=== PATIENT | male | born 1945 | race Caucasian/White ===

== ENCOUNTER → 2023-11-23 15:43 | Outpatient (REF) | payer OTHER, SELFPAY | LOC: DHCBS HW 15:43 | PROVIDERS: ATTENDING PHYSICIAN Nuclear Medicine Nuclear Cardiology; FAMILY PHYSICIAN Physician Assistant | DX: I42.9 Cardiomyopathy, unspecified (principal); I25.10 Atherosclerotic heart disease of native coronary artery without angina pectoris; I35.1 Nonrheumatic aortic (valve) insufficiency; Z95.1 Presence of aortocoronary bypass graft | CPT/HCPCS: 93306 ==

== ENCOUNTER 2024-03-30 09:49 | Emergency (ER) | payer OTHER, SELFPAY ==
[2024-03-30 09:51] VITALS: BP 154/88
[2024-03-30 11:28] VITALS: BMI 29.5
[2024-03-30] MEDS: TYLENOL 650 MG PO (11:29)
[2024-03-30] MEDS: NSS 500 IV (11:30)
--- NOTE | 2024-03-30 11:32 | ED.GENMED ---
History of Present Illness
General
Chief Complaint: Headache
Source: patient
Exam Limitations: none
Time Seen by Provider: 03/30/24 10:29
Nursing documentation reviewed up to this point in time: agreed with
History of Present Illness
History of Present Illness:
Patient presents to ED secondary to persistent 'annoying discomfort' on top of his head, radiating down to his left cheek since early this morning. Denies blurred vision. Denies dizziness. Denies difficulty with speech. Denies loss of sensation
or weakness. Denies difficulty with ambulation. Per spouse, patient appears to be at his baseline health, aside from his subjective sensation of discomfort. Denies recent illness. Denies recent change in medications or diet. Patient was
evaluated in ED 5 years ago with similar complaint. Per spouse, at that time, there was concern for possible 'giant cell arteritis'. Patient was given prescription for steroids, which he did not take. His symptoms resolved spontaneously over time.
Past History
Past History
ED Past Medical History: HTN, Hypercholesterolemia and Other (Status post prostatectomy )
ED Past Surgical History: None
Patient has exhibited threatening behavior?: No
Social History
Tobacco: Former smoker
Alcohol: Occasional
Personal:
Living: with family
Family History
Family History: Hypertension
Review of Systems
Review of Systems
Allergies reviewed?: Yes
All Other Systems: ROS reviewed and negative except as documented in HPI and ROS
Constitutional: Reports no symptoms
Respiratory: Reports no symptoms
Cardiac: Reports no symptoms
ABD/GI: Reports no symptoms
Musculoskeletal: Reports no symptoms
Skin: Reports no symptoms
Neurological: Reports headache; Denies dizzy, weakness or numbness
Phy Exam
Physical Exam
Physical Exam:
Physical Exam
General: no apparent distress, not acutely ill. afebrile
Head: nc/at. eomi
Neck: supple. no meningeal signs. normal range of motion
Heart: s1/s2 regular rate and rhythm, no murmur. equal radial pulses.
Lungs: no acute respiratory distress. clear bilaterally
Abdomen: normal bowel sounds. not tender.
Neuro: alert and oriented. no focal neurological deficits. normal speech. normal gait
Skin: no rash
Psychiatric: well kept. interactive and cooperative
Extremities: no edema. no calf tenderness.
Course
Orders/Labs/Results
Orders:
Orders
03/30/24 11:24
Orthostatic VS- Treatment ONCE
0.9% Sodium Chloride 500 ml [Nss] 500 ml IV BOLUS
Acetaminophen [Tylenol] 650 mg PO NOW STA
03/30/24 11:37
Basic Metabolic Panel Urgent
CBC/With ESR Urgent
CRP [C-Reactive Protein] Urgent
Abnormal Lab Results
03/30/24
11:37
RBC 4.27 L 10^6/uL
(4.70-6.10)
Hgb 11.9 L g/dL
(13.0-18.0)
Hct 35.3 L %
(39.0-52.0)
RDW 15.0 H %
(11.5-14.5)
Glucose 151 H mg/dl
(70-99)
03/30/24 11:37
03/30/24 11:37
Vital Signs
Initial and Last Documented VS:
Initial Vital Signs
Temp Pulse Resp BP Pulse Ox
98.1 F 70 16 154/88 97
03/30/24 09:51 03/30/24 09:51 03/30/24 09:51 03/30/24 09:51 03/30/24 09:51
Last Documented Vital Signs
Temp Pulse Resp BP Pulse Ox
98.1 F 58 18 147/77 98
03/30/24 09:51 03/30/24 11:38 03/30/24 11:38 03/30/24 11:38 03/30/24 11:38
MDM/Problems Addressed
MDM/Problems Addressed:
Patient reports resolution of his 'discomfort' after treatment. Otherwise, patient is afebrile, hemodynamically stable, and neurologically intact, at time of discharge. Advised increased fluid administration at home along with PCP follow-up with
any further concerns.
*Critical Care Note
Total Time (30-74mins, 75-104mins- exclusive of procedures): Not Applicable
ED Attending Note
-
Portions of this chart may have been created with voice recognition software.� Occasional wrong word or��sound alike� substitutions may have occurred due to the inherent limitations of voice recognition software.
Discharge Plan
Departure
Patient Disposition: Home (Routine Discharge)
Date of Disposition: 03/30/24
Time of Disposition: 13:36
Patient with high blood pressure during this ER visit?: Yes
Discharge Problem:
Headache
Instructions: Headache, Adult (DC)
Prescriptions:
No Action
amlodipine 10 MG tablet
10 mg PO DAILY
carvedilol 12.5 mg tablet
12.5 mg PO BID
aspirin 81 mg Tablet,Chewable
81 mg PO DAILY Qty: 1 0RF
losartan 25 mg tablet
25 mg PO HS
atorvastatin 40 mg tablet
40 mg PO QPM Qty: 90 10RF
nitroglycerin [nitroglycerin] 0.4 mg tablet, sublingual
0.4 mg sublingual [id number] PRN (Reason: chest pain) Qty: 25 5RF
Referrals:
Alex Garcia MD [Family Provider] -
Activity Restrictions/Additional Instructions:
As discussed, please follow up with your primary care physician with any further concerns.
Interventions
Interventions:
*Risk Screen - Suicide Last Done: 03/30/24 11:40
*General Assessment Last Done: 03/30/24 11:37
*Neglect/Abuse Screening Last Done: 03/30/24 11:37
ED- Fall Risk Assessment Last Done: 03/30/24 13:38
*ED COVID-19 Vaccine History Last Done: 03/30/24 11:37
ED- Neurological Assessment Last Done: 03/30/24 12:00
Discharge Date and Time
Print Language: FRENCH
[2024-03-30 11:36] VITALS: BP 147/77
[2024-03-30 11:38] VITALS: BP 147/77
[2024-03-30 11:55] LABS: % Basophils 1.1 % (0-2); % Eosinophils 4.9 % (0-6); % Immature Granulocytes 0.3 % (0-0.5); % Lymphocytes 27.6 % (20.5-51.1); % Monocytes 7.8 % (1.7-9.3); % Neutrophils 58.3 % (42.2-75.2); Absolute Basophils 0.1 10^3/uL (0-0.2); Absolute Eosinophils 0.4 10^3/uL (0-0.7); Absolute Monocytes 0.6 10^3/uL (0.1-0.6); Absolute Neutrophils 4.2 10^3/uL (1.4-6.5); Hematocrit 35.3 % (39.0-52.0); Hemoglobin 11.9 g/dL (13.0-18.0); Mean Corp Hgb Conc. 33.7 g/dL (33.0-37.0); Mean Corpuscular Hgb 27.9 pg (27.0-31.0); Mean Corpuscular Volume 82.7 fL (80.0-94.0); Mean Platelet Volume 9.3 fL (7.4-10.4); Nucleated Red Blood Cells % 0 % (-); Platelet Count 342 10^3/uL (130-400); Red Blood Cell Count 4.27 10^6/uL (4.70-6.10); White Blood Cell Count 7.2 10^3/uL (4.8-10.8)
[2024-03-30 12:02] LABS: C-Reactive Protein < 5.00 mg/L (0.0-10.00)
[2024-03-30 12:07] LABS: Blood Urea Nitrogen 16 mg/dl (9-20); Calcium 9.8 mg/dl (8.4-10.2); Carbon Dioxide 24 mmol/L (22-30); Chloride 106 mmol/L (98-107); Estimated Creatinine Clearance 62 ml/min; Glucose 151 mg/dl (70-99); Potassium 4.3 mmol/L (3.5-5.1); Sodium 139 mmol/L (135-145); eGFR > 60.00
[2024-03-30 12:28] VITALS: BP 121/63; BP 130/64; BP 133/66; PULSE 51; PULSE 59; PULSE 65
[2024-03-30 12:49] LABS: Erythrocyte Sed Rate 16 mm/hour (0-20)
== END 2024-03-30 14:00 | disposition home or self-care (01) ==
LOC: EMR 09:49
PROVIDERS: EMERGENCY PHYSICIAN Emergency Medicine; FAMILY PHYSICIAN Family Medicine
DX: R51.9 Headache, unspecified (principal); I10 Essential (primary) hypertension; Z87.891 Personal history of nicotine dependence
CPT/HCPCS: 99284; 96360; 80048; 85025; 85652; 86140

== ENCOUNTER → 2025-01-12 13:42 | Outpatient (REF) | payer OTHER, SELFPAY | LOC: RCS 13:42 | PROVIDERS: ATTENDING PHYSICIAN Nuclear Medicine Nuclear Cardiology; FAMILY PHYSICIAN Physician Assistant | DX: I42.9 Cardiomyopathy, unspecified (principal) | CPT/HCPCS: 93306 ==